=== PATIENT | female | born 1945 | race Caucasian/White ===

== ENCOUNTER 2020-09-06 12:39 | Emergency (ER) | payer OTHER ==
[~2020-09-06] VITALS: Ht 162.6 cm; Wt 126.1 kg
[~2020-09-06 12:39] MED LIST: ALBU90OI; ALBU90OI6 INH; ASPI81CH PO; CALCAVITDA PO; DICMIS50EC; FAMO20; FEXO60; HYDACE5 PO; HYDPAM25 PO; IBUP400 PO; LEVSOD50 PO; LORATADINE 10 MG PO; NEBI10 PO; NEBIVOLOL 10 MG PO; Norco 5-325 Ta1 EACH PO; OMEP20ER PO; PARO10; PENVK500 PO; ROPI1 PO; RXHYDACE PO; RXPENVK250 PO; SERT50 PO; SIMV5; SIMV5 PO; TRAZ100 PO; TRAZ50; VENL75; ZOLOFT PO; Zithromax250 MG PO
[2020-09-06] MEDS ORDERED: Percocet 5-3251 EACH PO (16:23)
[2020-09-06] MEDS ORDERED: Roxicodone5 MG PO (16:34)
== END 2020-09-06 16:53 | disposition home or self-care (01) ==
LOC: ER 12:39
DX: S32.019A Unspecified fracture of first lumbar vertebra, initial encounter for closed fracture (principal); I10 Essential (primary) hypertension; Z79.899 Other long term (current) drug therapy; Z91.040 Latex allergy status; Z88.6 Allergy status to analgesic agent; W01.198A Fall on same level from slipping, tripping and stumbling with subsequent striking against other object, initial encounter
CPT/HCPCS: 72100; 96372; 99283-25; J1885

== ENCOUNTER 2020-10-19 17:21 | Inpatient (IN) | payer OTHER ==
[~2020-10-19] VITALS: Ht 165.1 cm; Wt 119.7 kg
[~2020-10-19 17:21] MED LIST changes: +Percocet 5-3251 EACH PO; +Roxicodone5 MG PO
[2020-10-19] MEDS ORDERED: CYMBALTA30 M2 PO (19:09)
[2020-10-19 19:30] LABS: BASOPHILS ABSOLUTE AUTO 0.02 K/mm3 (0.00-0.23); BASOPHILS PERCENT AUTO 0 % (0-2); EOSINOPHILS PERCENT AUTO 0 % (0-6); Hematocrit 44.8 % (33.0-51.0); Hemoglobin 14.5 g/dL (11.5-16.0); Mean Corpuscular HGB 27.1 pg (26.0-34.0); Mean Corpuscular HGB Conc 32.4 g/dL (31.5-36.5); Mean Corpuscular Volume 84 fL (80-100); Mean Platelet Volume 10.9 fL (9.1-12.4); Platelet Count 194 K/mm3 (150-400); RDW Coefficient Variation 14.6 % (11.7-14.2); RDW Standard Deviation 44.2 fL (35.1-46.3); Red Blood Cell Count 5.36 M/mm3 (3.80-5.20); White Blood Cell Count 5.57 K/mm3 (4.00-11.30)
[2020-10-19 19:33] LABS: IMMATURE GRAN ABSOLUTE AUTO 0.08 K/mm3 (0.00-0.10); IMMATURE GRAN PERCENT AUTO 1 % (0-1); LYMPHOCYTES ABSOLUTE AUTO 0.98 K/mm3 (0.84-5.20); LYMPHOCYTES PERCENT AUTO 18 % (21-46); MONOCYTES ABSOLUTE AUTO 0.61 K/mm3 (0.16-1.47); MONOCYTES PERCENT AUTO 11 % (4-13); NEUTROPHILS ABSOLUTE AUTO 3.88 K/mm3 (1.96-9.15); NEUTROPHILS PERCENT AUTO 70 % (41-73)
[2020-10-19 19:46] LABS: C-REACTIVE PROTEIN, EXT RANGE 9.9 mg/dL (0.000-0.300)
[2020-10-19 19:49] LABS: Albumin/Globulin Ratio 0.6 (0.8-1.8); Bilirubin, Total 0.6 mg/dL (0.1-1.0); Bun/Creatinine Ratio 16.5 (12.0-20.0); Calcium, Blood 8.3 mg/dL (8.5-10.1); Creatinine, Blood 1.09 mg/dL (0.40-1.00); Potassium, Blood 3.4 mmol/L (3.5-5.5)
[2020-10-19] MEDS ORDERED: METF500 PO (20:43)
--- NOTE | 2020-10-19 23:26 | NUR ---
PATIENT IS A NEW ADMIT FROM ED. AXOX 4 AND THREE PERSON TRANSFER FROM [facility] TO BED. ARRIVED ON 15L O2 OXIMIZER STATING 92% AND RA BASELINE AND NS INFUSING AT 200 mL/HR AFTER IV REMDESIVIR. REPORTS PREDIABETES NEW 08/31/20. CBG 121. DROPLET PRECAUTIONS COVID-19+. DENIES CHEST PAIN AND N/V. PATIENT REPORTS NOT VACCINATED FOR COVID. RED DRY SCALY BILATERAL FEET. REPORTS NOT USING HER PRESCRIBED TOPICAL MEDICATION FROM PCP. ORIENTED TO ROOM AND CALL LIGHT SYSTEM.
--- NOTE | 2020-10-20 03:10 | NUR ---
SHIFT SUMMARY PATIENT HAD NO ACUTE CHANGES OBSERVED. AXO X 4 AND ONE ASSIST TO BSC. ON 15L O2 OXIMIZER STATING 92% AND RA BASELINE. PIV REMAINS INTACT. NS INFUSING AT 200 mL/HR TWO OF TWO BAGS. PREDIABETES WITH CBG 121. HYPERTENSIVE ON ADMIT. DENIES CHEST PAIN AND N/V. AFEBRILE. TALKING ON PHONE AFTER ADMIT WITH FAMILY. COOPERATIVE WITH CARE. CALL LIGHT IN REACH. BED IN LOWEST POSITION. WILL CONTINUE TO MONITOR UNTIL DAY SHIFT NURSE ASSUMES CARE.
[2020-10-20 05:39] LABS: BASOPHILS ABSOLUTE AUTO 0.01 K/mm3 (0.00-0.23); BASOPHILS PERCENT AUTO 0 % (0-2); EOSINOPHILS PERCENT AUTO 0 % (0-6); Hematocrit 43.3 % (33.0-51.0); Hemoglobin 13.8 g/dL (11.5-16.0); Mean Corpuscular HGB 27.4 pg (26.0-34.0); Mean Corpuscular HGB Conc 31.9 g/dL (31.5-36.5); Mean Corpuscular Volume 86 fL (80-100); Mean Platelet Volume 10.6 fL (9.1-12.4); Platelet Count 176 K/mm3 (150-400); RDW Coefficient Variation 14.6 % (11.7-14.2); RDW Standard Deviation 46.4 fL (35.1-46.3); Red Blood Cell Count 5.03 M/mm3 (3.80-5.20); White Blood Cell Count 4.74 K/mm3 (4.00-11.30)
[2020-10-20 05:49] LABS: IMMATURE GRAN ABSOLUTE AUTO 0.08 K/mm3 (0.00-0.10); IMMATURE GRAN PERCENT AUTO 2 % (0-1); LYMPHOCYTES ABSOLUTE AUTO 0.98 K/mm3 (0.84-5.20); LYMPHOCYTES PERCENT AUTO 21 % (21-46); MONOCYTES ABSOLUTE AUTO 0.39 K/mm3 (0.16-1.47); MONOCYTES PERCENT AUTO 8 % (4-13); NEUTROPHILS ABSOLUTE AUTO 3.28 K/mm3 (1.96-9.15); NEUTROPHILS PERCENT AUTO 69 % (41-73)
[2020-10-20 06:06] LABS: Albumin, Blood 2.6 g/dL (3.4-5.0); Albumin/Globulin Ratio 0.5 (0.8-1.8); Bilirubin, Total 0.4 mg/dL (0.1-1.0); Bun/Creatinine Ratio 20.9 (12.0-20.0); Calcium, Blood 8.3 mg/dL (8.5-10.1); Creatinine, Blood 1.1 mg/dL (0.40-1.00); Globulin, Blood 4.8 g/dL (2.2-4.0); Potassium, Blood 4.2 mmol/L (3.5-5.5); Total Protein, Blood 7.4 g/dL (6.4-8.2)
[2020-10-20 11:07] LABS: D-Dimer, Quantitative 0.59 mg/L FEU (0.00-0.52); International Normalized Ratio 0.93; Prothrombin Time Results 10.1 Sec (9.7-11.5)
[2020-10-20 11:31] LABS: PCO2 Arterial 44.1 mmHg (35-45); PO2 Arterial 67.4 mmHg (80-100); pH Blood Arterial 7.36 (7.35-7.45)
--- NOTE | 2020-10-20 13:24 | NUR ---
GAVE REPORT TO [employer] ADMINISTRATOR. PATIENT WAS TRANSFER TO ROOM ICU 16 AR [id number].
--- NOTE | 2020-10-20 13:27 | NUR ---
Patient is lying in bed and alert. Patient talks about her COVID symptoms and how the family that live with her also have symptoms but not nearly as bad as she does. As of this morning they had not been tested. Patient talks about her fears but also her trust in God. As I was about to pray for the patient her spouse, Giovany calls and so we all pray together (him via phone). Patient states that she has more peace after the prayer. I will continue to remain available to patient and family.
--- NOTE | 2020-10-20 16:21 | NUR ---
PT ARRIVED FROM MEDICAL FLOOR VIA BED, TRANSFERED TO ICU BED BY NURSING STAFF. PT IS ALERT AND ORIENTED, ABLE TO ASSIST WITH REPOSITIONING IN BED. PT IS ON AIRVO, O2 SATS MAINTAINING IN LOW TO MID 90S, WILL DECREASE TO HIGH 80S WITH ACTIVITY BUT RECOVERS QUICKLY TO 90S. PT DENIES PAIN/DISCOMFORT, DENIES NAUSEA, DENIES NEEDS AT THIS TIME. PT REMAINED STABLE ON AIRVO, ORDERS TO TRANSFER TO PCU GIVEN. REPORT GIVEN TO MAURICIO GLOVER IN PCU.
--- NOTE | 2020-10-20 19:16 | NUR ---
PT TRANSFER TO PCU. ALERT AND ORIENTED X4. ON AIRVO AT 55L AND 85% SATING LOW 90'S. LUNGS SOUNDING CLEAR AND DIM. DESATS WITH ACTIVITY. DRY COUGH. TELE SHOWING SINUS WITH HR 60-70'S. VITAL SIGNS STABLE. BOWEL TONES PRESENT. ABLE TO USE BEDPAN. URINE CLEAR AND YELLOW. ADA DIET AND ACHS BLOOD SUGARS. CALL LIGHT IN REACH. DENIES NEEDS AT THIS TIME. REPORTED OFF TO ONCOMING RN.
[2020-10-21 04:16] LABS: BASOPHILS ABSOLUTE AUTO 0.02 K/mm3 (0.00-0.23); BASOPHILS PERCENT AUTO 0 % (0-2); EOSINOPHILS PERCENT AUTO 0 % (0-6); Hematocrit 43.6 % (33.0-51.0); IMMATURE GRAN ABSOLUTE AUTO 0.11 K/mm3 (0.00-0.10); IMMATURE GRAN PERCENT AUTO 2 % (0-1); LYMPHOCYTES ABSOLUTE AUTO 0.97 K/mm3 (0.84-5.20); LYMPHOCYTES PERCENT AUTO 15 % (21-46); MONOCYTES ABSOLUTE AUTO 0.68 K/mm3 (0.16-1.47); MONOCYTES PERCENT AUTO 10 % (4-13); Mean Corpuscular HGB 27.5 pg (26.0-34.0); Mean Corpuscular HGB Conc 32.1 g/dL (31.5-36.5); Mean Corpuscular Volume 86 fL (80-100); Mean Platelet Volume 10.8 fL (9.1-12.4); NEUTROPHILS PERCENT AUTO 73 % (41-73); Platelet Count 223 K/mm3 (150-400); RDW Coefficient Variation 14.2 % (11.7-14.2); RDW Standard Deviation 44.8 fL (35.1-46.3); Red Blood Cell Count 5.09 M/mm3 (3.80-5.20); White Blood Cell Count 6.68 K/mm3 (4.00-11.30)
[2020-10-21 04:49] LABS: Albumin, Blood 2.6 g/dL (3.4-5.0); Albumin/Globulin Ratio 0.6 (0.8-1.8); Bilirubin, Total 0.5 mg/dL (0.1-1.0); Bun/Creatinine Ratio 29.5 (12.0-20.0); Calcium, Blood 8.8 mg/dL (8.5-10.1); Creatinine, Blood 0.98 mg/dL (0.40-1.00); Globulin, Blood 4.7 g/dL (2.2-4.0); Potassium, Blood 4.1 mmol/L (3.5-5.5); Total Protein, Blood 7.3 g/dL (6.4-8.2)
[2020-10-21 04:55] LABS: C-Reactive Protein, High Sens. 55.1 mg/L (0.000-3.000)
--- NOTE | 2020-10-21 05:11 | NUR ---
SHIFT SUMMARY PT A&O X4. MONITOR SHOWS SB-SR, HR 50's-60's. SPO2 > 88% ON AIRVO @ 55L, FIO2 85% TITRATED TO 91% THIS SHIFT. RR 20's-40. LUNG SOUNDS CLEAR, DIM IN BASES. VSS. PT ABLE TO REPOSITION SELF IN BED, USING BEDPAN FOR RESTROOM D/T DESAT W/ EXERTION. PT CONTINENT W/ EPISODES OF INCONTINENCE W/ COUGHING.
--- NOTE | 2020-10-21 10:07 | NUR ---
ALERT AND ORIENTED X4. NEURO WNL. PUPILS EQUAL, ROUND, AND REACTIVE. ON AIRVO AT 55L AND 88%. SATING 89-91%. SOB WITH MOVEMENT. TACHYPNEA AND SHALLOW BREATHS. DESCRIBES MUSCULOSKELETAL PAIN WITH DEEP BREAHTS. COUGH DRY AND OCCASIONAL. UP IN RECLINER AT THIS TIME. ENCOURAGED PRONING. TELE SHOWING SINUS BRADLEY - NORMAL SINUS RHYTHM. HR 58-60'S. VITAL SIGNS STABLE. DENIES CHEST PAIN/PRESSURE. BOWEL TONES PRESENT. UP TO C THIS AM. COMPLAINED OF FEELING NAUSEOUS THIS AM, MEDICATED WITH IV ZOFRAN. ATTENDS IN PLACE. ACHS BLOOD SUGARS. SKIN C/D/I. REDDENED AREAS IN GROIN/PANUS FOLDS WELL BILATERAL BREAST FOLDS. NEW ORDER FOR NYSTATIN POWDER. SBA WITH WALKER. USES WALKER AT BASELINE. CALL LIGHT IN REACH. DENIES NEEDS AT THIS TIME. WILL CONTINUE TO MONITOR.
--- NOTE | 2020-10-21 17:39 | NUR ---
SHIFT SUMMARY: NO ACUTE CHANGES. AIRVO AT 55L AND 81%, SATING LOW 90'S. TELE REMAINS UNCHANGED. VITAL SIGNS STABLE. UP TO BSC WITH 1 PERSON SBA AND WALKER. ATTENDS IN PLACE. PT STATES SHE IS VERY TIRED. SLEEPING ON AND OFF TODAY. REMDESIVIR INFUSED. PT EATING DINNER AT THIS TIME. UPDATED. NYSTATIN POWDER APPLIED TO GROIN/PANUS AREA AND UNDER BREASTS. DENIES NEEDS. DRINKING WATER THROUGHOUT THE DAY. CALL LIGHT IN REACH. WILL CONTINUE TO MONITOR AND REPORT OFF.
[2020-10-22 04:39] LABS: BASOPHILS ABSOLUTE AUTO 0.02 K/mm3 (0.00-0.23); BASOPHILS PERCENT AUTO 0 % (0-2); EOSINOPHILS PERCENT AUTO 0 % (0-6); Hematocrit 43.3 % (33.0-51.0); Hemoglobin 13.7 g/dL (11.5-16.0); IMMATURE GRAN ABSOLUTE AUTO 0.18 K/mm3 (0.00-0.10); IMMATURE GRAN PERCENT AUTO 2 % (0-1); LYMPHOCYTES ABSOLUTE AUTO 1.23 K/mm3 (0.84-5.20); LYMPHOCYTES PERCENT AUTO 16 % (21-46); MONOCYTES ABSOLUTE AUTO 0.95 K/mm3 (0.16-1.47); MONOCYTES PERCENT AUTO 12 % (4-13); Mean Corpuscular HGB 26.9 pg (26.0-34.0); Mean Corpuscular HGB Conc 31.6 g/dL (31.5-36.5); Mean Corpuscular Volume 85 fL (80-100); NEUTROPHILS ABSOLUTE AUTO 5.53 K/mm3 (1.96-9.15); NEUTROPHILS PERCENT AUTO 70 % (41-73); Platelet Count 276 K/mm3 (150-400); RDW Coefficient Variation 14.2 % (11.7-14.2); RDW Standard Deviation 44.5 fL (35.1-46.3); Red Blood Cell Count 5.09 M/mm3 (3.80-5.20); White Blood Cell Count 7.91 K/mm3 (4.00-11.30)
[2020-10-22 05:00] LABS: Albumin, Blood 2.6 g/dL (3.4-5.0); Albumin/Globulin Ratio 0.6 (0.8-1.8); Bilirubin, Total 0.4 mg/dL (0.1-1.0); Bun/Creatinine Ratio 35.8 (12.0-20.0); C-REACTIVE PROTEIN, EXT RANGE 2.19 mg/dL (0.000-0.300); Calcium, Blood 8.6 mg/dL (8.5-10.1); Creatinine, Blood 0.95 mg/dL (0.40-1.00); Globulin, Blood 4.4 g/dL (2.2-4.0); Potassium, Blood 3.9 mmol/L (3.5-5.5)
--- NOTE | 2020-10-22 05:13 | NUR ---
SHIFT SUMMARY PT AXO. IN SR/SB. STARTED SHIFT ON 55L 80% HFNC WITH SPO2 ~ 90%. PT MOVED FROM CHAIR TO BED AND SPO2 BEGAN TO RUN AAROUND 85 % - 88%. PT TITRATED EVENTUALLY UP TO 60L AND 90%. STILL COULDN'T GET SATS >87%. PT AGREED TO PRONE, RT AND THIS RN AIDED PT IN FULL PRONING AND SINCE THEN, SPO2 RANGING FROM 88% - 94%. PT TOLERATING WELL FOR NOW. PT HAS BEEN UP TO [facility] [place] THIS SHIFT AND VOIDED. LUNG SOUNDS REMAIN WITH SOME CRACKLES MOSTLY IN BASES. OTHERWISE, PT RESTING OFF AND ON THIS SHIFT. REMAINS IN ISOLATION. WCTM.
--- NOTE | 2020-10-22 08:15 | NUR ---
PT OOB TO RECLINER EATING BREAKFAST SOB HAS TO STOP TO CONSERVE ENERGY ALSO SNEEZING BIOX DEC DUE TO PT REMOVING HIGH FLOW TOLD PT TO PUT BACK ON
--- NOTE | 2020-10-22 10:30 | NUR ---
ASSITED PT TO RECLINE HER LEG UP AND SHE REQ A BLANKET FOR HER LEGS
--- NOTE | 2020-10-22 12:05 | NUR ---
MEDS GIVEN SCHED EATING LUNCH
--- NOTE | 2020-10-22 18:25 | NUR ---
pt assisted to bsc then to bed hob elev 75 degree
--- NOTE | 2020-10-23 00:47 | NUR ---
PATIENT IS ALERT AND ORIENTED X4. 02 SATS 83-88% ON AIRVO AT BEGINNING OF SHIFT, PT SATS DECLINED AND PATIENT PLACED ON CPAP, 02 SATS NOW 93%. REDNESS UNDER BREASTS AND PANNUS, POWDER APPLIED PER EMAR. TWO PERSON ASSIST WITH BEDPAN AND REPOSITIONING. CALL LIGHT IN REACH.
--- NOTE | 2020-10-23 01:24 | NUR ---
ASSUMED CARE RECEIVED REPORT FROM CAT GLOVER AND ASSUMED CARE. PT IS RESTING IN BED WITH CPAP IN PLACE, SATS STABLE AT 92% ON 90% FIO2. DENIES COMPLAINTS AT THIS TIME BUT MONITORING FOR ELEVATED BP THAT WAS TREATED WITH PRN HYDRALAZINE. WILL CONTINUE TO MONITOR AND WILL CONTINUE PLAN OF CARE.
[2020-10-23 04:39] LABS: Alanine Aminotransfer (ALT/SGP 53 U/L (12-78); Albumin, Blood 2.6 g/dL (3.4-5.0); Albumin/Globulin Ratio 0.6 (0.8-1.8); Alk Phos 81 U/L (50-136); Anion Gap 6 mmol/L (6-16); Aspartate Aminotrans (AST/SGOT 51 U/L (12-37); Bilirubin, Total 0.5 mg/dL (0.1-1.0); Blood Urea Nitrogen 32 mg/dL (8-24); Bun/Creatinine Ratio 36.7 (12.0-20.0); CO2, Blood 27 mmol/L (21-32); Calcium, Blood 8.6 mg/dL (8.5-10.1); Chloride, Blood 110 mmol/L (98-108); Creatinine, Blood 0.87 mg/dL (0.40-1.00); Globulin, Blood 4.1 g/dL (2.2-4.0); Glomerular Filtration Rate >60 (60-); Glucose, Blood 128 mg/dL (70-99); Potassium, Blood 3.9 mmol/L (3.5-5.5); Sodium, Blood 143 mmol/L (136-145); Total Protein, Blood 6.7 g/dL (6.4-8.2)
--- NOTE | 2020-10-23 16:09 | NUR ---
Pt's activity tolerance has been very low today. She has only tolerated short breaks from the bipap for a small amount of p.o. intake for meals. Falling asleep in the chair when not involved in conversation or activity of care with staff. C/o feeling queasy as well as poor appetite and tummy ache this morning. Given Milk of Mag for bowel care. Had also c/o lack of sense of taste.
[2020-10-24 04:32] LABS: Alanine Aminotransfer (ALT/SGP 48 U/L (12-78); Albumin, Blood 2.6 g/dL (3.4-5.0); Albumin/Globulin Ratio 0.6 (0.8-1.8); Alk Phos 77 U/L (50-136); Anion Gap 5 mmol/L (6-16); Aspartate Aminotrans (AST/SGOT 44 U/L (12-37); Bilirubin, Total 0.6 mg/dL (0.1-1.0); Blood Urea Nitrogen 27 mg/dL (8-24); CO2, Blood 28 mmol/L (21-32); Calcium, Blood 8.6 mg/dL (8.5-10.1); Chloride, Blood 111 mmol/L (98-108); Creatinine, Blood 0.75 mg/dL (0.40-1.00); Globulin, Blood 4.1 g/dL (2.2-4.0); Glomerular Filtration Rate >60 (60-); Glucose, Blood 120 mg/dL (70-99); Potassium, Blood 3.7 mmol/L (3.5-5.5); Sodium, Blood 144 mmol/L (136-145); Total Protein, Blood 6.7 g/dL (6.4-8.2)
--- NOTE | 2020-10-24 05:51 | NUR ---
SHIFT SUMMARY PATIENT IS ALERT AND ORIENTED X3, SLOW TO RESPOND AND HAD TROUBLE STATING HER AND THE PRESIDENT. PATIENT IS PLEASANT AND COOPERATIVE. 02 SATS 93% ON BIPAP 30/12 FI02 75%. PATIENT SLEPT ON HER SIDE ALMOST PRONE MOST THE NIGHT. USES BEDPAN OR BEDSIDE COMMODE DEPENDING ON STRENGTH. ABLE TO REPOSITION SELF IN BED. VSS, NO ACUTE CHANGES. CALL LIGHT IN REACH.
--- NOTE | 2020-10-24 20:25 | NUR ---
PT ON BIPAP ALL SHIFT EXCEPT FOR 2X WHEN SHE EXITED BED, TRIGGERING BED ALARM, AND DISCONNECTED HERSELF FROM BIPAP TUBING AND TELEMETRY LEADS, PT DESATTED TO MID-50'S ON RA DURING BOTH EPISODES AND RETURNED TO MID-90'S WITHIN 30 MIN EACH TIME, PT TOO LETHARGIC TO ASSESS SWALLOW ABILITY, DR. TSE NOTIFIED AT BEDSIDE AND PO RX HELD, CBG'S 107, 104, AND 204 RESPECTIVELY AND TREATED PER MAY, PT DENIES ADDITIONAL CONCERNS AT THIS TIME
--- NOTE | 2020-10-24 20:58 | NUR ---
CALL TO THIS RN PROVIDES W/UPDATE D/T MISSING CALL AROUND SHIFT CHANGE. PER , HE HAS NOT HEARD ANYTHING FROM PT IN 2 OR SO DAYS. THIS RN TELLS HE CAN ALWAYS CALL TO CHECK AND WE CAN PROVIDE UPDATES DAILY IF HE WOULD LIKE. ANISH CAN BE CONTACTED AT #
--- NOTE | 2020-10-25 07:31 | NUR ---
SHIFT SUMMARY PT AOX2-3 AT START OF SHIFT. SINUS 60'S-70'S PER TELE. LETHARGIC, SLEPT THROUGH MOST OF SHIFT. HAD A FEW EPISODES OF DISORIENTATION AND PULLING OFF BIPAP/TRYING TO GET OUT OF BED, DIFFICULT TO DIRECT WHEN UP. DESATS QUICKLY WHILE OFF BIPAP INTO 80'S. OTHERWISE VSS WHILE RESTING ON BIPAP. ABLE TO TOLERATE UP TO BEDSIDE COMMODE W/ASSIST FROM ONE PERSON. IV SALINE LOCKED.
[2020-10-25 13:06] LABS: Source, Urine Catheter
[2020-10-25 13:09] LABS: Appearance, Urine Clear (Clear); Bilirubin, Urine Neg (Neg); Blood, Urine Neg (Neg); Color, Urine Yellow (P-Yellow); Glucose Qualitative, Urine Neg (Neg); Ketones, Urine 3+ (Neg); Leukocyte Esterase, Urine 1+ (Neg); Nitrite, Urine Neg (Neg); Protein, Urine 2+ (Neg); Specific Gravity, Urine 1.015 (1.003-1.022); Urobilinogen, Urine 1+ (Normal); pH, Urine 6.5 (5.0-8.0)
[2020-10-25 13:16] LABS: Hyaline Casts 0-2 /lpf (0-2)
[2020-10-25 13:17] LABS: Bacteria Many /hpf; Mucus Light (0-Heavy); Red Blood Cells, Urine Not Seen /hpf (0-2); Squamous Epithelial Cells Rare /hpf (Few)
[2020-10-25 17:50] LABS: Anion Gap 5 mmol/L (6-16); Blood Urea Nitrogen 28 mg/dL (8-24); Bun/Creatinine Ratio 36.9 (12.0-20.0); CO2, Blood 27 mmol/L (21-32); Calcium, Blood 8.5 mg/dL (8.5-10.1); Chloride, Blood 111 mmol/L (98-108); Creatinine, Blood 0.76 mg/dL (0.40-1.00); Glomerular Filtration Rate >60 (60-); Glucose, Blood 163 mg/dL (70-99); Potassium, Blood 3.8 mmol/L (3.5-5.5); Sodium, Blood 143 mmol/L (136-145)
--- NOTE | 2020-10-25 18:14 | NUR ---
SHIFT SUMMARY NO ACUTE EVENTS THIS SHIFT, VSS. PT SLEPT MAJORITY OF SHIFT, REPOSITIONED SELF FROM SIDE TO SIDE. PT WILL RESPOND TO VERBAL STIMULUS, ANSWERS QUESTIONS APPROPRIATELY BUT WAS VERY SLEEPY AND DECLINED MEALS TODAY. PT REMAINED ON BIPAP THROUGHOUT SHIFT, OFF ONLY FOR ORAL MEDS AND ORAL CARE. PT COMPLAINED OF DISCOMFORT IN LOWER ABDOMINAL AREA, PT DENIED PAIN AFTER ORO CATHETER PLACEMENT. AT ONE POINT THIS SHIFT PT SET OFF BED ALARM, WHEN THIS RN ENTERED THE ROOM PT HAD PULLED OFF HER BIPAP MASK AND PULLED OFF HER GOWN, STATING SHE NEEDED TO GO TO THE BATHROOM. O2 SATS DROPPED TO HIGH 60S UNTIL BIPAP MASK WAS REAPPLIED. PT'S O2 RECOVERED QUICKLY TO 90S ONCE MASK WAS REAPPLIED.
--- NOTE | 2020-10-26 04:38 | NUR ---
SHIFT SUMMARY PT HAS BEEN SLEEPING THROUGH THE NIGHT EXPECT TO TAKE MEDS, OR FOR ORAL CARE/REPOSITIONING. PT DID ATTEMPT TO SIT AT THE BEDSIDE & REMOVE HER BIPAP MASK X1 FOR NO REASON. PT IS UNABLE TO TOLERATE MASK BEING OFF WITHOUT SPO2 DROPPING QUICKLY & RESPIRATIONS INCREASING INTO THE MID 40'S. PT RECOVERS WELL WITH REMINDERS TO TAKE SLOW DEEP BREATHS, SHE IS VERY SLEEPY AND FORGETS EASILY. CURRENT BIPAP SETTINGS ARE 14/10, FIO2 70%. LUNGS ARE COARSE/DIMINISHED, CALL LIGHT REMAINS IN REACH, BED IN LOW POSITION, BED ALARM IS ON FOR SAFETY. WCTM
[2020-10-26 05:20] LABS: BASOPHILS ABSOLUTE AUTO 0.03 K/mm3 (0.00-0.23); BASOPHILS PERCENT AUTO 0 % (0-2); EOSINOPHILS ABSOLUTE AUTO 0.05 K/mm3 (0.00-0.68); EOSINOPHILS PERCENT AUTO 1 % (0-6); Hematocrit 42.1 % (33.0-51.0); Hemoglobin 13.4 g/dL (11.5-16.0); IMMATURE GRAN ABSOLUTE AUTO 0.47 K/mm3 (0.00-0.10); IMMATURE GRAN PERCENT AUTO 4 % (0-1); LYMPHOCYTES PERCENT AUTO 7 % (21-46); MONOCYTES ABSOLUTE AUTO 0.91 K/mm3 (0.16-1.47); MONOCYTES PERCENT AUTO 8 % (4-13); Mean Corpuscular HGB 27.1 pg (26.0-34.0); Mean Corpuscular HGB Conc 31.8 g/dL (31.5-36.5); Mean Corpuscular Volume 85 fL (80-100); Mean Platelet Volume 10.9 fL (9.1-12.4); NEUTROPHILS ABSOLUTE AUTO 8.66 K/mm3 (1.96-9.15); NEUTROPHILS PERCENT AUTO 79 % (41-73); Platelet Count 243 K/mm3 (150-400); RDW Coefficient Variation 13.9 % (11.7-14.2); Red Blood Cell Count 4.94 M/mm3 (3.80-5.20); White Blood Cell Count 10.92 K/mm3 (4.00-11.30)
[2020-10-26 05:36] LABS: Anion Gap 7 mmol/L (6-16); Blood Urea Nitrogen 26 mg/dL (8-24); Bun/Creatinine Ratio 35.3 (12.0-20.0); CO2, Blood 27 mmol/L (21-32); Calcium, Blood 8.2 mg/dL (8.5-10.1); Chloride, Blood 111 mmol/L (98-108); Creatinine, Blood 0.74 mg/dL (0.40-1.00); Glomerular Filtration Rate >60 (60-); Glucose, Blood 103 mg/dL (70-99); Potassium, Blood 3.4 mmol/L (3.5-5.5); Sodium, Blood 145 mmol/L (136-145)
[2020-10-26 09:37] LABS: PCO2 Arterial 37.2 mmHg (35-45); PO2 Arterial 57.7 mmHg (80-100); pH Blood Arterial 7.48 (7.35-7.45)
[2020-10-26 09:54] LABS: Magnesium, Blood 2.5 mg/dL (1.6-2.4); Phosphorus, Blood 3.1 mg/dL (2.5-4.9)
--- NOTE | 2020-10-26 10:43 | NUR ---
PT IN BED RESTING COMFORTABLY, CLINIMIX AND KCL STARTED COMPATABILITY CONFIRMED BY PHARMACY
--- NOTE | 2020-10-26 17:56 | NUR ---
SHIFT SUMMARY PT IS LETHARGIC, BUT ABLE TO ANSWER ORIENTATION QUESTIONS APPROPRIATELY. AT TIMES PT WOULD REPEAT TO HERSELF "MHMM, MHMM" IF ANSWERING A QUESTION WITHOUT BEING PROMPTED. PT REMAINED ON BIPAP ENTIRE SHIFT. WHEN TAKEN OFF BIPAP TO TRIAL PO INTAKE PT WOULD DESATURATE TO O2 OF LOW 80S AND RESPIRATORY RATE WOULD INCREASE TO 40s-50s, WAS NOT ABLE TO SAFELY COME OFF BIPAP FOR ORAL NUTRITION. ORAL CARE DONE T/O SHIFT. CLINIMIX STARTED THIS SHIFT.
[2020-10-27 05:55] LABS: Anion Gap 5 mmol/L (6-16); Blood Urea Nitrogen 30 mg/dL (8-24); Bun/Creatinine Ratio 41.8 (12.0-20.0); CO2, Blood 25 mmol/L (21-32); Calcium, Blood 8.4 mg/dL (8.5-10.1); Chloride, Blood 110 mmol/L (98-108); Creatinine, Blood 0.72 mg/dL (0.40-1.00); Glomerular Filtration Rate >60 (60-); Glucose, Blood 145 mg/dL (70-99); Magnesium, Blood 2.5 mg/dL (1.6-2.4); Phosphorus, Blood 2.8 mg/dL (2.5-4.9); Potassium, Blood 3.5 mmol/L (3.5-5.5); Sodium, Blood 140 mmol/L (136-145)
--- NOTE | 2020-10-27 06:24 | NUR ---
SUMMARY PT REMIANS BIPAP DEPENDENT,ORAL CARE PROVIDED WITH SMALL SIPS OF WATER RR ALLOWED, PT HAS BEEN ALERT, ORIENTED X3 & COOPERATIVE WITH CARE. PT ATTEMPTED TO ASSIST WITH CARE AND APPLICATION OF CHAPSTICK, SHE ALSO ASSISTED WITH REPOSITIONING IN BED THE NIGHT BEFORE SHE WAS TOO SLEEPY. SPO2 WILL DROP QUICKLY WHEN BIPAP IS REMOVED. CLINIMIX INFUSING PER EMAR. GLUCOSE CHECKS Q6, NO COVERAGE NEEDED. PT WAS UPSET AT THE BEGINNING OF THE NIGHT AND ASKED "AM I GOING TO " REASSURANCE WAS OFFERED & SHE WAS EDUCATED ABOUT THE STEPS THAT HAVE BEEN TAKEN IN HER HOSP STAY SO FAR SUCH IV NUTRITION, PURPOSE OF BIPAP, ETC.. THE PT WOULD LIKE TO SPEAK WITH A PRACTICE BUSINESS ASST DURING HER STAY, THE PT APPEARED TO BE IN GOOD SPIRITS AFTER THIS COVERSATION, SHE WAS AWAKE & WATCHING TV A FEW TIMES THROUGH THE NIGHT, VSS, RESP 25-35, CALL LIGHT USED PRN, BED ALARM ON FOR SAFETY. WCTM & REPORT TO DAY RN
--- NOTE | 2020-10-27 11:25 | NUR ---
Spiritual care visit conducted. Patient is lying in bed and alert. Patietn immediately tells me how exhausted she is and that she is just "feeling down." We explore areas of family, elvis and inspiration. I normalize patient's struggle, and provide therapeutic listening, pastoral drug and alcohol counselor, recitation of scripture and prayer. Patient responds well and shows signs of an elevated mood and increased hope. I will continue to remain available to patient and family.
--- NOTE | 2020-10-27 18:05 | NUR ---
SHIFT SUMMARY PT ALERT AND ORIENTED TO STATE,SELF, LOCATION. CONFUSED AT TIMES. HR STABLE. BP STABLE. OXYGEN SATURATION MAINTAINED ABOVE 90% ON CPAP FIO2 AT 65%. TRIALED PT ON HIGH FLOW NC AT 15 L/MIN. PT UNABLE TO TOLERATE FOR MORE THAN 10 MIN. PT ABLE TO TAKE SMALL BREAKS FOR DRINKS FROM CPAP. PT DESATS QUICKLY. PT ABLE TO ASSIST IN TURNS Q 2 HRS AND NEEDED. PT ASSISTS IN BOOSTS IN BED. P/T WORKED WITH PT IN BED. PT DECLINING TO MOVE TO CHAIR T/O SHIFT D/T EXHAUSTION. PT WANTING TO ATTEMPT TO MOVE TO CHAIR TOMORROW. NO CP OR PRESSURE REPORTED. ORAL CARE PROVIDED Q 4 HRS. PASTORAL CARE MET WITH PT THIS AFTERNOON, SEE NOTES. WILL CONTINUE TO MONITOR UNTIL REPORT GIVEN TO NIGHTSHIFT RN.
--- NOTE | 2020-10-28 04:46 | NUR ---
SHIFT SUMMARY PATIENT IS ALERT AND ORIENTED X4, PLEASANT AND COOPERATIVE. CONFUSED WHEN FIRST WAKING UP. BED ALARM CONNECTED TO CALL LIGHT DUE TO CONFUSION. 02 SATS 88-93% ON BIPAP 30/12 70%. Q4 ORAL CARE PROVIDED. ENCOURAGED PATIENT TO SLEEP ON HER SIDE. SKIN CLEANED AN NEW POWDER APPLIED UNDER BREASTS AND PANNUS AT BEGINNING OF SHIFT. VSS, NO ACUTE CHANGES. CALL LIGHT IN REACH.
[2020-10-28 05:14] LABS: BASOPHILS ABSOLUTE AUTO 0.03 K/mm3 (0.00-0.23); BASOPHILS PERCENT AUTO 0 % (0-2); EOSINOPHILS ABSOLUTE AUTO 0.12 K/mm3 (0.00-0.68); EOSINOPHILS PERCENT AUTO 1 % (0-6); Hematocrit 39.8 % (33.0-51.0); Hemoglobin 12.9 g/dL (11.5-16.0); IMMATURE GRAN ABSOLUTE AUTO 0.36 K/mm3 (0.00-0.10); IMMATURE GRAN PERCENT AUTO 3 % (0-1); LYMPHOCYTES ABSOLUTE AUTO 0.66 K/mm3 (0.84-5.20); LYMPHOCYTES PERCENT AUTO 6 % (21-46); MONOCYTES ABSOLUTE AUTO 0.83 K/mm3 (0.16-1.47); MONOCYTES PERCENT AUTO 8 % (4-13); Mean Corpuscular HGB 27.2 pg (26.0-34.0); Mean Corpuscular HGB Conc 32.4 g/dL (31.5-36.5); Mean Corpuscular Volume 84 fL (80-100); Mean Platelet Volume 12.1 fL (9.1-12.4); NEUTROPHILS ABSOLUTE AUTO 8.71 K/mm3 (1.96-9.15); NEUTROPHILS PERCENT AUTO 81 % (41-73); Platelet Count 220 K/mm3 (150-400); RDW Coefficient Variation 13.6 % (11.7-14.2); RDW Standard Deviation 42.1 fL (35.1-46.3); Red Blood Cell Count 4.74 M/mm3 (3.80-5.20); White Blood Cell Count 10.71 K/mm3 (4.00-11.30)
[2020-10-28 05:35] LABS: Anion Gap 6 mmol/L (6-16); Blood Urea Nitrogen 26 mg/dL (8-24); Bun/Creatinine Ratio 35.3 (12.0-20.0); CO2, Blood 24 mmol/L (21-32); Calcium, Blood 8.3 mg/dL (8.5-10.1); Chloride, Blood 108 mmol/L (98-108); Creatinine, Blood 0.74 mg/dL (0.40-1.00); Glomerular Filtration Rate >60 (60-); Glucose, Blood 161 mg/dL (70-99); Potassium, Blood 3.7 mmol/L (3.5-5.5); Sodium, Blood 138 mmol/L (136-145)
--- NOTE | 2020-10-28 17:29 | NUR ---
SHIFT SUMMARY PT LETHARGIC, CONFUSED AT TIMES. PT ABLE TO ASSIST IN Q 2 TURNS. OXYGEN SATURATION MAINTAINED ABOVE 90% ON 70% FIO2 AND 14/10 CPAP SETTINGS. PT DESATS QUICKLY WITH EXERTION AND DURING PO INTAKE/ORAL CARE. ORAL CARE PROVIDED Q 4 HRS. PO INTAKE OFFERED FREQUENTLY. PT UP TO CHAIR FOR MOST OF AM. PT WORKED WITH P/T AND BACK TO BED THIS AFTERNOON. HR STABLE. BP STABLE. PT REPORTS NO CP OR PRESSURE. CLINIMIX GTT. PT ENCOURAGED TO USE P/T THERAPIES WHILE AWAKE AND IN BED AND TO DEEP BREATH AND COUGH. CALL LIGHT WITHIN REACH. MUSIC PLAYING FOR PT IN ROOM. WILL CONT TO MONITOR UNTIL REPORT GIVEN TO NIGHTSHIFT RN.
--- NOTE | 2020-10-28 18:37 | NUR ---
UPDATE UPDATED ON PT'S STATUS.
[2020-10-29 04:21] LABS: BASOPHILS ABSOLUTE AUTO 0.03 K/mm3 (0.00-0.23); BASOPHILS PERCENT AUTO 0 % (0-2); EOSINOPHILS PERCENT AUTO 1 % (0-6); Hematocrit 39.4 % (33.0-51.0); Hemoglobin 12.7 g/dL (11.5-16.0); IMMATURE GRAN ABSOLUTE AUTO 0.47 K/mm3 (0.00-0.10); IMMATURE GRAN PERCENT AUTO 4 % (0-1); LYMPHOCYTES PERCENT AUTO 6 % (21-46); MONOCYTES ABSOLUTE AUTO 0.83 K/mm3 (0.16-1.47); MONOCYTES PERCENT AUTO 8 % (4-13); Mean Corpuscular HGB Conc 32.2 g/dL (31.5-36.5); Mean Corpuscular Volume 84 fL (80-100); Mean Platelet Volume 11.7 fL (9.1-12.4); NEUTROPHILS ABSOLUTE AUTO 8.94 K/mm3 (1.96-9.15); NEUTROPHILS PERCENT AUTO 81 % (41-73); Platelet Count 203 K/mm3 (150-400); RDW Coefficient Variation 13.7 % (11.7-14.2); RDW Standard Deviation 41.8 fL (35.1-46.3); White Blood Cell Count 10.97 K/mm3 (4.00-11.30)
[2020-10-29 04:38] LABS: Anion Gap 6 mmol/L (6-16); Blood Urea Nitrogen 22 mg/dL (8-24); Bun/Creatinine Ratio 31.8 (12.0-20.0); CO2, Blood 24 mmol/L (21-32); Calcium, Blood 7.6 mg/dL (8.5-10.1); Chloride, Blood 108 mmol/L (98-108); Creatinine, Blood 0.69 mg/dL (0.40-1.00); Glomerular Filtration Rate >60 (60-); Glucose, Blood 172 mg/dL (70-99); Potassium, Blood 3.9 mmol/L (3.5-5.5); Sodium, Blood 138 mmol/L (136-145)
--- NOTE | 2020-10-29 04:53 | NUR ---
SHIFT SUMMARY PATIENT IS ALERT AND ORIENTED X4. 02 SATS 90-93% ON BIPAP 30/01 FI02 75%. Q4 ORAL CARE. PATIENT TURNS TO HER SIDE BUT HAS TROUBLE PRONING ALL THE WAY. SATS INCREASE WHEN PATIENT ON HER SIDE. INDEPENDENT WITH REPOSITIONING. ORO DRAINING. VSS, NO ACUTE CHANGES. CALL LIGHT IN REACH.
--- NOTE | 2020-10-29 10:05 | NUR ---
PT ALERT AND ORIENTED X4. NEURO WNL. ON BIPAP THIS AM AT 14/11 AND 75%. PT SWITCHED TO AIRVO AT 50L AND 100% LATER THIS AM. TOLERATING AIRVO AT THIS TIME, SATING 88-90%. WHEN TALKING OR COUGHING PATIENT DESATS TO LOW 80'S. ABLE TO RECOVER WITHIN 3 MIN. BIPAP ON STANDBY AT BEDSIDE. LUNGS SOUNDING COARSE. PRODUCTIVE, MOIST COUGH. TELE SHOWING SINUS WITH HR 70-80'S. VITAL SIGNS STABLE, DENIES CHEST PAIN/PRESSURE. BOWEL TONES HYPOACTIVE, DENIES NAUSEA. CLINIMIX INFUSING. ORO CATH IN PLACE DRAINING CLEAR/YELLOW URINE TO GRAVITY. EATING BREAKFAST AT THIS TIME. TAKING PILLS WHOLE WITH WATER. ORAL CARE Q4. CBG Q6 AT THIS TIME. WILL CONTINUE TO MONITOR.
--- NOTE | 2020-10-29 10:38 | NUR ---
CALL PLACED TO DR. GREEN TO UPDATE ON AIRVO, AND BREAKFAST. WILL CONTINUE CLINIMIX INFUSION AND ENCOURAGE ORAL INTAKE. NO NEW ORDERS AT THIS TIME. PATIENT TALKING ON PHONE WITH FAMILY. DENIES NEEDS AT THIS TIME.
--- NOTE | 2020-10-29 14:19 | NUR ---
PT CONTINUES TO TOLERATE AIRVO. SLEEPING AT THIS TIME. PHYSICAL THERAPY IN TO WORK WITH PATIENT PRIOR TO LUNCH. NEW EXERCISES PROVIDED. PATIENT ABLE TO EAT SOME OF LUNCH, DRINKING WATER AND GLUCERNA. DENIES NEEDS AT THIS TIME. TURNING SELF IN BED. WILL CONTINUE TO MONITOR.
--- NOTE | 2020-10-29 18:11 | NUR ---
SHIFT SUMMARY: SEE PREVIOUS NOTES. PT CURRENTLY ON AIRVO AT 55L AND 100% WHILE EATING, SATING HIGH 80'S AT THIS TIME. ABLE TO RECOVER IN 3 MIN. COMPLAINS OF HEADACHE THIS EVENING. MEDICATED PER EMAR. COLD TOWEL APPLIED TO HEAD. HEADACHE DECREASING. ABLE TO MOVE AND POSITION SELF IN BED. SLEEPING ON AND OFF. PT LIKES TO SLEEP ON SIDE. APPETITE INCREASING. CLINIMIX AND LIPIDS INFUSING AT THIS TIME. CALL LIGHT IN REACH. WILL CONTINUE TO MONITOR AND REPORT OFF.
--- NOTE | 2020-10-29 19:49 | NUR ---
ASSUMED CARE PT IS ALERT AND ORIENTED. PT DENIES CHEST PAIN. VITALS ARE STABLE AND ON AIRVO 60L/100%FIO2 WITH SATS RANGING 85-91%. PT WILL DESAT TO LOW 70'S UPON EXERTION. PT REPORTING THROBBING HEADACHE ALL DAY WITHOUT RELIEF. PT LAYING ON SIDE, WAS EDUCATED ON IMPORTANCE OF PRONING. CALL LIGHT IS WITHIN REACH. WILL CONTINUE TO MONITOR.
--- NOTE | 2020-10-30 00:46 | NUR ---
NOW ON BIPAP 30/01 100% R10 WITH SATS OF 89% DUE TO DESATS OF LOW 80'S TO HIGH 70'S AIRVO.
[2020-10-30 04:03] LABS: BASOPHILS ABSOLUTE AUTO 0.04 K/mm3 (0.00-0.23); BASOPHILS PERCENT AUTO 0 % (0-2); EOSINOPHILS ABSOLUTE AUTO 0.09 K/mm3 (0.00-0.68); EOSINOPHILS PERCENT AUTO 1 % (0-6); Hematocrit 40.7 % (33.0-51.0); Hemoglobin 13.2 g/dL (11.5-16.0); IMMATURE GRAN ABSOLUTE AUTO 0.54 K/mm3 (0.00-0.10); IMMATURE GRAN PERCENT AUTO 4 % (0-1); LYMPHOCYTES ABSOLUTE AUTO 0.77 K/mm3 (0.84-5.20); LYMPHOCYTES PERCENT AUTO 6 % (21-46); MONOCYTES ABSOLUTE AUTO 1.11 K/mm3 (0.16-1.47); MONOCYTES PERCENT AUTO 8 % (4-13); Mean Corpuscular HGB 27.2 pg (26.0-34.0); Mean Corpuscular HGB Conc 32.4 g/dL (31.5-36.5); Mean Corpuscular Volume 84 fL (80-100); Mean Platelet Volume 12.2 fL (9.1-12.4); NEUTROPHILS ABSOLUTE AUTO 10.63 K/mm3 (1.96-9.15); NEUTROPHILS PERCENT AUTO 81 % (41-73); Platelet Count 210 K/mm3 (150-400); RDW Coefficient Variation 13.5 % (11.7-14.2); RDW Standard Deviation 41.3 fL (35.1-46.3); Red Blood Cell Count 4.86 M/mm3 (3.80-5.20); White Blood Cell Count 13.18 K/mm3 (4.00-11.30)
[2020-10-30 04:19] LABS: Anion Gap 7 mmol/L (6-16); Blood Urea Nitrogen 24 mg/dL (8-24); Bun/Creatinine Ratio 33.1 (12.0-20.0); CO2, Blood 24 mmol/L (21-32); Calcium, Blood 8.4 mg/dL (8.5-10.1); Chloride, Blood 107 mmol/L (98-108); Creatinine, Blood 0.72 mg/dL (0.40-1.00); Glomerular Filtration Rate >60 (60-); Glucose, Blood 160 mg/dL (70-99); Magnesium, Blood 2.4 mg/dL (1.6-2.4); Phosphorus, Blood 4.4 mg/dL (2.5-4.9); Potassium, Blood 4.1 mmol/L (3.5-5.5); Sodium, Blood 138 mmol/L (136-145)
--- NOTE | 2020-10-30 05:17 | NUR ---
SHIFT SUMMARY PT IS ALERT AN ORIENTED. VITALS ARE STABLE. PT IS ON BIPAP 30/01 R10 100%FIO2 SATING AT 88-90. PT RUNNING IV MEDS PER EMAR. ORO IS PATENT AND DRAINING TO GRAVITY. PT DENIES CHEST PAIN. PT HAS REPORTED HEADACHE OF 8/10 AND TREATED PER EMAR. CALL LIGHT IS WITHIN REACH. WILL CONTINUE TO MONITOR.
--- NOTE | 2020-10-30 11:17 | NUR ---
PT ALERT AND ORIENTED X4. NEURO WNL. PATIENT STATES SHE IS FEELING VERY TIRED THIS AM. BIPAP IN PLACE WITH SETTINGS AT 14/11 AND 95%. SATING LOW 90'S. PRODUCTIVE HARSH COUGH WHEN TAKING DEEP BREATHS. LUNGS SOUNDING COARSE AND DIM IN BASES. XRAY DONE THIS AM. TELE SHOWING SINUS WITH HR 70-80'S. VITAL SIGNS STABLE. DENIES CHEST PAIN/PRESSURE. BOWEL TONES PRESENT. ORO CATH IN PLACE DRAINING CLEAR/YELLOW URINE TO GRAVITY. CATHETER CARE DONE AND ATTENDS CHANGED. CLINIMIX AND LIPIDS INFUSING. PPP. SKIN FOLDS RED - CLEANED AND POWEDER APPLIED. COCCYX RED, CONTINUAL PRESSURE REDISTRIBUTION. BLE SLIGHTLY RED WITH DRY FLAKEY SKIN. ABLE TO STAND WITH SBA AND WALKER. UP IN RECLINER THIS AM. BLOOD SUGARS Q6. CALL LIGHT IN REACH. WILL CONTINUE TO MONITOR.
--- NOTE | 2020-10-30 12:27 | NUR ---
NO ACUTE CHANGES. PATIENT MAINTAINING 90-92% ON BIPAP AT 14/11 AND 95%. DENIES HEADACHE. UP IN RECLINER AT THIS TIME. CALL LIGHT IN REACH. WILL ATTEMPT AIRVO TO SEE IF PATIENT CAN EAT. CLINIMIX AND LIPIDS STILL INFUSING.
--- NOTE | 2020-10-30 13:42 | NUR ---
PT ABLE TO COME OFF BIPAP FOR LUNCH. LOW APPETITE, ABLE TO EAT SMALL AMOUNT. AIRVO AT 60L AND 100% - SATING 89-92%. PT WAS ON ARIVO FOR ABOUT 2 HOURS WHILE EATING. BIPAP IN PLACE AT THIS TIME SETTINGS 30/01 AT 100%. - SATING 93%. SPOKE WITH PATIENT ABOUT END OF LIFE DECISIONS/WISHES. PATIENT DOES NOT KNOW WISHES AT THIS TIME. WILLING TO SPEAK WITH PALLIATIVE CARE. CALL PLACED TO MIRELLA IN PALLIATIVE CARE WHO IS PLANNING ON COMING TO TALK WITH PATIENT. VITAL SIGNS STABLE. WILL CONTINUE TO MONITOR.
--- NOTE | 2020-10-30 15:34 | NUR ---
CHANGE IN CODE STATUS Pal Care visit this afternoon per staff request to further discuss code status with pt. Pt is a month shy of 75 and has PMH of asthma, DM, fibromyalgia, prev DVT and morbid obesity. She currently has been ill for 2+ weeks with Covid before being admitted for acute hypoxic resp failure due to covid. Pt is on bipap and was able to switch to high flow O2/airvo for long enough to have a meal at least once per day the last two days. I spoke to her with her bipap on. She appears profoundly fatigued with the effort of breathing and conversation. She was appreciative of the visit and conversation. She is clear that she does not want CPR if her heart stops. She is feeling that she would not want to be intubated if her resp status worsened but would like her 's input. At her request, I contacted pt's , Giovany. He reports he has also been sick since his was admitted. I educated on 14d quarantine period for him and that he needs to be s/s free for three days before being out of quarantine. I informed Giovany of Romana's decision re: CPR & request of his input and also that she wants him to get vaccinated. After long conversation with Giovany, he states he supports whatever his decides but cannot give her any input. He asked that I passed that on and give her his love. I spoke with and RN to update on these conversations. Order received and entered for limited code at this time with intubation and medications ok but NO CPR. I will return tomorrow to discuss further with Romana per her request and our plan. and RN informed of Palliative Care plan also. will update pt's daughter in [facility].
--- NOTE | 2020-10-30 19:20 | NUR ---
SHIFT SUMMARY: VITAL SIGNS REMAIN STABLE. PT ABLE TO TRANSFER TO [facility] AT 60L AND 100% FOR DINNER. DRINKING FLUIDS WHILE ON BIPAP BREAK. CLINIMIX AND LIPIDS INFUSING. UP IN RECLINER FOR MOST OF DAY. PALLIATIVE CARE IN TO TALK WITH PATIENT. NEW ORDERS FOR LIMITED CODE. REPORTED OFF TO LESLEY Mathew
--- NOTE | 2020-10-30 21:00 | NUR ---
PT VERBALIZED TO THIS NURSE THAT SHE DID NOT WANT COMPRESSION, INTUBATION, OR MEDICATION IF AND EVENT WERE TO HAPPEN. DR ELIZABETH WAS NOTIFIED AND ORDER WAS PUT IN.
[2020-10-31 05:02] LABS: BASOPHILS ABSOLUTE AUTO 0.06 K/mm3 (0.00-0.23); BASOPHILS PERCENT AUTO 0 % (0-2); EOSINOPHILS ABSOLUTE AUTO 0.24 K/mm3 (0.00-0.68); EOSINOPHILS PERCENT AUTO 2 % (0-6); Hematocrit 42.1 % (33.0-51.0); Hemoglobin 13.6 g/dL (11.5-16.0); IMMATURE GRAN ABSOLUTE AUTO 0.52 K/mm3 (0.00-0.10); IMMATURE GRAN PERCENT AUTO 4 % (0-1); LYMPHOCYTES ABSOLUTE AUTO 1.02 K/mm3 (0.84-5.20); LYMPHOCYTES PERCENT AUTO 7 % (21-46); MONOCYTES ABSOLUTE AUTO 1.36 K/mm3 (0.16-1.47); MONOCYTES PERCENT AUTO 10 % (4-13); Mean Corpuscular HGB 27.1 pg (26.0-34.0); Mean Corpuscular HGB Conc 32.3 g/dL (31.5-36.5); Mean Corpuscular Volume 84 fL (80-100); Mean Platelet Volume 12.7 fL (9.1-12.4); NEUTROPHILS ABSOLUTE AUTO 10.91 K/mm3 (1.96-9.15); NEUTROPHILS PERCENT AUTO 77 % (41-73); Platelet Count 214 K/mm3 (150-400); RDW Coefficient Variation 13.8 % (11.7-14.2); RDW Standard Deviation 42.1 fL (35.1-46.3); Red Blood Cell Count 5.01 M/mm3 (3.80-5.20); White Blood Cell Count 14.11 K/mm3 (4.00-11.30)
[2020-10-31 05:27] LABS: Anion Gap 6 mmol/L (6-16); Blood Urea Nitrogen 23 mg/dL (8-24); CO2, Blood 25 mmol/L (21-32); Chloride, Blood 105 mmol/L (98-108); Glomerular Filtration Rate >60 (60-); Glucose, Blood 144 mg/dL (70-99); Potassium, Blood 4.1 mmol/L (3.5-5.5); Sodium, Blood 136 mmol/L (136-145)
--- NOTE | 2020-10-31 06:25 | NUR ---
SHIFT SUMMARY PT IS ALERT AND ORIENTED. VITALS ARE STABLE. PT IS ON BIPAP 30/01 90%FIO2 WITH SATS MAINTAING AT 88-89% T/O THE NIGHT. PT WANTED TO STAY IN CHAIR ALL NIGHT STATING THAT SHE WAS COMFORTABLE. THERE HAVE BEEN NO ACUTE CHANGES. ORO IN PLACE AND DRAINING TO GRAVITY. PT STATES THAT SHE FEELS ALOT BETTER. PT DENIES CHEST PAIN OR DISCOMFORT. CALL LIGHT IS WITHIN REACH.
--- NOTE | 2020-10-31 08:30 | NUR ---
PT ALERT AND ORIENTED. VERY HAPPY AND LIKES TO LISTEN TO MUSIC IN ROOM. NEURO WNL. DENIES NUMBNESS/TINGLING. TELE SHOWING SINUS WITH HR 70-80'S. STABLE VITAL SIGNS. DENIES CHEST PAIN/PRESSURE. ON BIPAP FULL FACE MASK, SETTINGS AT 14/11 AND 90%. OCCASIONAL COUGH WHEN TRYING TO TAKE DEEP BREATH. LUNGS SOUNDING COARSE AND VERY DIM. PT UP TO STAND WITH WALKER THIS AM TO REPOSITION. BIPAP TURNED UP TO 100% O2 WHILE MOVING AND PATIENT DESATED TO HIGH 70'S. UPON SITTING BACK IN RECLINER AND BIPAP MAINTAINED 100% FOR 4 MIN, PATIENT WAS ABLE TO RECOVER SATS AT 88%. UNABLE TO CONVERT TO AIRVO THIS AM FOR MORNING MEAL. BIPAP TURNED UP TO 14/11 AT 95%. PATIENT SATS NOW SIT AT 88-92%. BOWEL TONES PRESENT, NO BM IN [address]ATH IN PL[address] DRAINING DARK YELLOW URINE. CATHETER CARE THIS AM. ATTENDS IN PLACE. DENIES NAUSEA. 2+ EDEMA IN BLE WITH DRY, RED, FLAKEY SKIN. NON SLIP SOCKS IN PLACE. UP WITH 1 PERSON ASSIST WITH FRONT WHEEL WALKER. CLINIMIX INFUSING. IV IN RIGHT AC. Q6 BLOOD SUGARS WITH INSULIN COVERAGE. PATIENT COMPLAINS OF HEADACHE THIS AM, MEDICATED PER EMAR WITH RELIEF. COLD WASH CLOTH APPLIED TO NECK. CALL LIGHT IN REACH. PATIENT DENIES NEEDS AT THIS TIME. UP IN RECLINER WITH PILLOWS FOR SUPPORT. PATIENT ABLE TO SHIFT WEIGHT AND MOVE SELF. CHAIR ALARM IN PLACE FOR SAFETY. WILL CONTINUE TO MONITOR.
--- NOTE | 2020-10-31 13:19 | NUR ---
PATIENT ABLE TO COME OFF BIPAP FOR 30 MIN WHILE EATING LUNCH, SATURATIONS MAINTAINED AT 86-88%. BIPAP BACK IN PLACE AT THIS TIME. BIPAP SETTINGS 30/01 AT 100%, SATURATIONS 91%. ABLE TO EAT 1/3 OF LUNCH. CALL LIGHT IN REACH. SPOKE WITH ANISH ON PHONE. UPDATED ON PATIENT STATUS. HAD CONVERSATION ABOUT STATUS ON BIPAP AND HOW WE DO NOT HAVE ROOM TO INCREASE BIPAP SETTINGS. DISCUSSED THE FACT THAT SHE IS MAINTAINING HER SATURATION NOW, BUT THERE IS A POSSIBILITY SHE COULD DECLINE. ALSO DISCUSSED PATIENTS WISHES WITH AND DNR STATUS. EXPRESSED HIS SUPPORT. STATES DAUGHTER CLARA IS PLANNING ON COMING DOWN FROM [place]. HAS BEEN SICK HIMSELF SINCE DAY AFTER PATIENT WAS ADMITTED. PATIENT AND SPEAKING ON PHONE THROUGHOUT THE DAY. WILL CONTINUE TO UPDATE FAMILY. PATIENT IN RECLINER AT THIS TIME AND DENIES NEEDS. CALL LIGHT IN REACH.
--- NOTE | 2020-10-31 19:39 | NUR ---
SHIFT SUMMARY: PT ABLE TO COME OFF BIPAP FOR 30 MIN TO EAT DINNER. BIPAP IN PLACE AT THIS TIME. LOW APPETITE. NO OTHER CHANGES SEE PREVIOUS NOTE. 1 BOWEL MOVEMENT TODAY. IN RECLINER AT THIS TIME. DENIES NEEDS. REPORTED OFF TO ONCOMING RN.
[2020-11-01 04:06] LABS: BASOPHILS ABSOLUTE AUTO 0.06 K/mm3 (0.00-0.23); BASOPHILS PERCENT AUTO 0 % (0-2); EOSINOPHILS ABSOLUTE AUTO 0.23 K/mm3 (0.00-0.68); EOSINOPHILS PERCENT AUTO 1 % (0-6); Hematocrit 42.5 % (33.0-51.0); Hemoglobin 13.7 g/dL (11.5-16.0); IMMATURE GRAN PERCENT AUTO 3 % (0-1); LYMPHOCYTES ABSOLUTE AUTO 1.16 K/mm3 (0.84-5.20); LYMPHOCYTES PERCENT AUTO 7 % (21-46); MONOCYTES ABSOLUTE AUTO 1.62 K/mm3 (0.16-1.47); MONOCYTES PERCENT AUTO 10 % (4-13); Mean Corpuscular HGB 27.2 pg (26.0-34.0); Mean Corpuscular HGB Conc 32.2 g/dL (31.5-36.5); Mean Corpuscular Volume 84 fL (80-100); NEUTROPHILS ABSOLUTE AUTO 12.38 K/mm3 (1.96-9.15); NEUTROPHILS PERCENT AUTO 78 % (41-73); Platelet Count 220 K/mm3 (150-400); RDW Coefficient Variation 14.4 % (11.7-14.2); RDW Standard Deviation 43.6 fL (35.1-46.3); Red Blood Cell Count 5.04 M/mm3 (3.80-5.20); White Blood Cell Count 15.95 K/mm3 (4.00-11.30)
--- NOTE | 2020-11-01 18:52 | NUR ---
PT REFUSED TO BE RETURNED TO BED AND STATES THAT SHE BREATHES MORE EASILY UP IN THE CHAIR; ORO CARE PERFORMED AND ORAL CARE Q4H; PT TOLERATED WELL; CLINIMIX AND FAT EMULSION HUNG ON FRESH LINES PER MAY; PT ON 100% FIO2 ON BIPAP 30/01 SATTING 88-90%; PT REPOSITIONED IN CHAIR Q2H; REDNESS ON COCCYX AND IN SKIN FOLDS ADDRESSED WITH MICONAZOLE POWDER; PT LETHARGIC AND DID NOT PASS BEDSIDE SWALLOW SCREEN FOR MEALS BUT WAS ABLE TO TOLERATE WHOLE PILLS AND THIN LIQUIDS WHEN STIMULATED THE WHOLE TIME, BEFORE FALLING BACK ASLEEP; PT DENIES ADDITIONAL CONCERNS AT THIS TIME
[2020-11-02 04:23] LABS: BASOPHILS ABSOLUTE AUTO 0.04 K/mm3 (0.00-0.23); BASOPHILS PERCENT AUTO 0 % (0-2); EOSINOPHILS ABSOLUTE AUTO 0.29 K/mm3 (0.00-0.68); EOSINOPHILS PERCENT AUTO 2 % (0-6); Hematocrit 42.5 % (33.0-51.0); Hemoglobin 13.5 g/dL (11.5-16.0); IMMATURE GRAN ABSOLUTE AUTO 0.36 K/mm3 (0.00-0.10); IMMATURE GRAN PERCENT AUTO 3 % (0-1); LYMPHOCYTES PERCENT AUTO 8 % (21-46); MONOCYTES ABSOLUTE AUTO 1.29 K/mm3 (0.16-1.47); MONOCYTES PERCENT AUTO 9 % (4-13); Mean Corpuscular HGB 27.2 pg (26.0-34.0); Mean Corpuscular HGB Conc 31.8 g/dL (31.5-36.5); Mean Corpuscular Volume 86 fL (80-100); Mean Platelet Volume 12.9 fL (9.1-12.4); NEUTROPHILS ABSOLUTE AUTO 11.54 K/mm3 (1.96-9.15); NEUTROPHILS PERCENT AUTO 79 % (41-73); Platelet Count 204 K/mm3 (150-400); RDW Coefficient Variation 14.5 % (11.7-14.2); RDW Standard Deviation 45.1 fL (35.1-46.3); Red Blood Cell Count 4.97 M/mm3 (3.80-5.20); White Blood Cell Count 14.62 K/mm3 (4.00-11.30)
[2020-11-02 04:39] LABS: Anion Gap 6 mmol/L (6-16); Blood Urea Nitrogen 29 mg/dL (8-24); Bun/Creatinine Ratio 36.5 (12.0-20.0); CO2, Blood 27 mmol/L (21-32); Calcium, Blood 8.7 mg/dL (8.5-10.1); Chloride, Blood 105 mmol/L (98-108); Creatinine, Blood 0.79 mg/dL (0.40-1.00); Glomerular Filtration Rate >60 (60-); Glucose, Blood 119 mg/dL (70-99); Potassium, Blood 4.2 mmol/L (3.5-5.5); Sodium, Blood 138 mmol/L (136-145)
--- NOTE | 2020-11-02 05:40 | NUR ---
SHIFT SUMMARY PT IS ALERT AN ORIENTED, VERY PLEASANT, BUT QUIET. HAS SLEPT MOST OF THE NIGHT. NO ACUTE CHANGES. VITALS ARE STABLE AND IN ON BIPAP 100% WITH SATS RANGING FROM 85%-88%. PT WAS ABLE TO AMBULATE WITH FWW FROM CHAIR TO BED WITH MINIMAL ASSIST. PT DENIES CHEST PAIN. ORO IS IN PLACE AND DRAINING TO GRAVITY. IV MEDICTION INFUSING. CALL LIGHT IS WITHIN REACH. WILL CONTINUE TO MONITOR.
--- NOTE | 2020-11-02 20:04 | NUR ---
PT REPOSITIONED Q2H IN BED, TOLERATED ORAL CARE AND ORO CARE WELL, 2 OF PT'S CBG'S REQUIRED CORRECTION, FRESH CLINIMIX AND LIPIDS LINES HUNG PER MAY, PT'S DAUGHTER CALLED AND SAID THAT SHE SPOKE W/ PT'S AND THEY DECIDED TO KEEP PT DNR DNI WITH FULL TREATMENT, AT 1830 PT DISASSEMBLED BIPAP MASK AND DESATURATED TO 40% SPO2, PT ASSISTED BACK ON TO BIPAP MASK AND SETTINGS CHANGED TO 16/12 STILL ON 100%FI02, PT SATURATING BACK TO 88% W/I 15 MIN, PT DENIES ADDITIONAL CONCERNS AT THIS TIME
--- NOTE | 2020-11-03 03:50 | NUR ---
PROVIDER CALLED DR MATA REGARDING PT'S DECLINING RESP STATUS. CONFIRMED WITH PT THAT SHE IS 100% DNR/DNI, MENTATION AXO. PT TITRATED FROM 16 100% BIPAP TO 18/14 100% BIPAP. PT PRONED. SATS RANGING 78 - 85%. RR >38. PT HAS ALREADY COMPLETED FULL REGIMEN OF DEXMETHASONE AND REMDESEVIR. DR STATES TO CONTINUE TO PRONE AND CONTINUE BIPAP THERAPY. PT IS DNR/DNI AND NEEDS TO BE INTIUBATED BUT HAS MADE THE DECISION W/ FAMILY TO NOT.
--- NOTE | 2020-11-03 04:51 | NUR ---
LABS PT REFUSING AM LABS AT THIS TIME. WILL RETRY LATE AM.
--- NOTE | 2020-11-03 05:38 | NUR ---
SHIFT SUMMARY SEE PROVIDER NOTE. PT'S RESP STATUS APPEARING TO DECLINE. PT AXO. IN SR. ON 100% BIPAP, NOT TOLERATING AIRVO WITH SPO2 DOWN TO 55% WITH REMOVAL OF BIPAP. PT HAS BEEN PRONED FOR MAJORITY OF SHIFT AND SATS REMAIN HOVERING AROUND 80-88%. PT GIVEN DIURETIC. ORO PATENT AND DRAINING. PT C/O SEVERE BACK PAIN, 5MG OXYCODONE GIVEN TO GREAT EFFECT, PT STATES PAIN SEVERELY DECREASED. OTHERWISE, PT USING CALL LIGHT APPROPRIATELY. CONTINUES TO ENDORSE REMAINING DNR/DNI. RT IN ROOM MULTIPLE TIMES THIS SHIFT. REMAINS IN ISOLATION.
--- NOTE | 2020-11-03 10:14 | NUR ---
COMFORT CARE ORDERS INITIATED THIS AM BY PROVIDER. MEDICATED PER EMAR. FAMILY AT BEDSIDE, BIPAP REMOVED AND NC PLACED. TOD 0959.
--- NOTE | 2020-11-03 10:33 | NUR ---
Received call from Dr Matthews and discussed case. Pt's respiratory status is declining and Pt does not want intubation. Pt has elected to pursue comfort care. Dr Cope, this RN, and primary RN Sherrill met with family in Pt's room after donning PPE. Pt's wishes discussed with family who are in agreement with Pt's decision. Provided therapeutic listening and answered questions. Pt premedicated with comfort medications before D/C of BIPAP. This RN remained in the room and assisted Primary RN with comfort measures. Offered therapeutic voice and gentle touch with Pt. Pt's Giovany and Pt's son in law leave room with Pt's daughter remaining behind. Offered therapeutic encouragement and answered questions for daughter. Comfort achieved with Pt passing away peacefully. Family chooses [facility]. Palliative Care will remain available.
== END 2020-11-03 12:10 | DRG 177 ==
LOC: ER 17:21 → PCU 20:38 → MEDS 20:38 → ICUW 10-20 13:01 → PCU 10-20 17:16
PROVIDERS: Family Medicine; Hospitalist; Physician Assistant; Student in an Organized Health Care Education/Training Program; ADMIT Internal Medicine
PROC: 8E0ZXY6 Isolation (ICD-10-PCS; 2020-10-19)
PROC: 3E0333Z Introduction of Anti-inflammatory into Peripheral Vein, Percutaneous Approach (ICD-10-PCS; 2020-10-19)
PROC: XW033E5 Introduction of Remdesivir Anti-infective into Peripheral Vein, Percutaneous Approach, New Technology Group 5 (ICD-10-PCS; 2020-10-19)
PROC: 5A09357 Assistance with Respiratory Ventilation, Less than 24 Consecutive Hours, Continuous Positive Airway Pressure (ICD-10-PCS; principal; 2020-10-30)
PROC: 5A0945A Assistance with Respiratory Ventilation, 24-96 Consecutive Hours, High Flow/Velocity Cannula (ICD-10-PCS; 2020-10-30)
DX: U07.1 COVID-19 (principal); J12.82 Pneumonia due to coronavirus disease 2019; J80 Acute respiratory distress syndrome; Z68.42 Body mass index [BMI] 45.0-49.9, adult; Z66 Do not resuscitate; Z51.5 Encounter for palliative care; B37.2 Candidiasis of skin and nail; M79.7 Fibromyalgia; E11.9 Type 2 diabetes mellitus without complications; F32.9 Major depressive disorder, single episode, unspecified; E66.9 Obesity, unspecified; R03.0 Elevated blood-pressure reading, without diagnosis of hypertension; J45.909 Unspecified asthma, uncomplicated; Z90.710 Acquired absence of both cervix and uterus; Z88.6 Allergy status to analgesic agent; Z91.040 Latex allergy status; Z91.018 Allergy to other foods; Z79.84 Long term (current) use of oral hypoglycemic drugs; Z79.899 Other long term (current) drug therapy
CPT/HCPCS: 36415; 36600; 51702; 71045; 80048; 80053; 81001; 82728; 82803; 82947; 83605; 83735; 84100; 84145; 85025; 85379; 85384; 85610; 85730; 86140; 86141; 87086; 93005; 93010; 94660; 94762; 96374; 97110; 97162; 97530; 99285-25; A9270; J0360; J1100; J1630; J1644; J1650; J1940; J2060; J2270; J2405; J3411; J3480; J7030